=== PATIENT | male | born 1945 | race African-American/Black ===

== ENCOUNTER → 2017-10-06 16:08 | Outpatient (CLI) | payer MEDICARE, BC ==
[2014-11-20 13:01] VITALS: BMI 37.3
[~2017-10-06 16:08] MED LIST: CARDIZEM CD300 MG PO; CIPRO500 MG PO; COLACE100 MG PO; FLOMAX0.4 MG PO; MIRALAX17 GM PO; PHENAZOPYRIDIN100 MG PO; PROSCAR5 MG PO; ZOVIRAX400 MG PO
== END | disposition home or self-care (01) ==
LOC: D.LAB 16:08
DX: Z12.5 Encounter for screening for malignant neoplasm of prostate (principal)

== ENCOUNTER → 2017-10-08 09:04 | Outpatient (CLI) | payer MEDICARE, BC ==
[2014-11-20 13:01] VITALS: BMI 37.3
== END | disposition home or self-care (01) ==
LOC: D.CT 09:04
DX: C64.1 Malignant neoplasm of right kidney, except renal pelvis (principal)